=== PATIENT | female | born 1960 ===

== ENCOUNTER 2016-12-30 13:47 | Emergency (ER) | payer OTHER ==
--- NOTE | 2016-12-30 14:46 | RAD ---
INDICATION: Left wrist injury. TECHNIQUE: 3 views of the left wrist were obtained. FINDINGS: There is focal soft tissue swelling dorsal to the distal radius and ulna. The bones are normal alignment. No fracture is seen. Joint spaces appear maintained. IMPRESSION: SOFT TISSUE SWELLING, NO FRACTURE IS SEEN.
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
== END 2016-12-30 15:05 | disposition home or self-care (01) ==
LOC: UCEAST 13:47
DX: S63.502A Unspecified sprain of left wrist, initial encounter (principal); X58.XXXA Exposure to other specified factors, initial encounter; Y92.9 Unspecified place or not applicable
CPT/HCPCS: 99202; G0463